=== PATIENT | male | born 1955 | race Caucasian/White ===

== ENCOUNTER → 2020-05-22 | Outpatient (CLI) | payer OTHER ==
[2020-05-22 18:49] LABS: BASOPHILS ABSOLUTE AUTO 0.03 K/mm3 (0.00-0.23); BASOPHILS PERCENT AUTO 1 % (0-2); EOSINOPHILS ABSOLUTE AUTO 0.12 K/mm3 (0.00-0.68); EOSINOPHILS PERCENT AUTO 3 % (0-6); Hematocrit 40.8 % (37.0-53.0); Hemoglobin 13.1 g/dL (13.5-17.5); IMMATURE GRAN ABSOLUTE AUTO 0.02 K/mm3 (0.00-0.10); IMMATURE GRAN PERCENT AUTO 0 % (0-1); LYMPHOCYTES ABSOLUTE AUTO 0.47 K/mm3 (0.84-5.20); LYMPHOCYTES PERCENT AUTO 11 % (21-46); MONOCYTES ABSOLUTE AUTO 0.37 K/mm3 (0.16-1.47); MONOCYTES PERCENT AUTO 8 % (4-13); Mean Corpuscular HGB Conc 32.1 g/dL (31.5-36.5); Mean Corpuscular Volume 97 fL (80-100); NEUTROPHILS ABSOLUTE AUTO 3.44 K/mm3 (1.96-9.15); NEUTROPHILS PERCENT AUTO 77 % (41-73); RDW Coefficient Variation 15.3 % (11.7-14.2); RDW Standard Deviation 54.8 fL (35.1-46.3); Red Blood Cell Count 4.22 M/mm3 (4.30-5.90); White Blood Cell Count 4.45 K/mm3 (4.00-11.30)
[2020-05-22 18:56] LABS: Mean Platelet Volume 11.7 fL (9.1-12.4); Platelet Count 150 K/mm3 (150-400)
[2020-05-22 18:59] LABS: Magnesium, Blood 2.4 mg/dL (1.6-2.4)
[2020-05-22 19:07] LABS: Alanine Aminotransfer (ALT/SGP 63 U/L (12-78); Albumin, Blood 3.4 g/dL (3.4-5.0); Albumin/Globulin Ratio 1.3 (0.8-1.8); Alk Phos 143 U/L (50-136); Anion Gap 9 mmol/L (6-16); Aspartate Aminotrans (AST/SGOT 33 U/L (12-37); Bilirubin, Total 0.3 mg/dL (0.1-1.0); Blood Urea Nitrogen 27 mg/dL (8-24); Bun/Creatinine Ratio 38.6 (12.0-20.0); CO2, Blood 22 mmol/L (21-32); Calcium, Blood 8.5 mg/dL (8.5-10.1); Chloride, Blood 111 mmol/L (98-108); Globulin, Blood 2.7 g/dL (2.2-4.0); Glomerular Filtration Rate >60 (60-); Glucose, Blood 148 mg/dL (70-99); Phosphorus, Blood 3.8 mg/dL (2.5-4.9); Potassium, Blood 5.1 mmol/L (3.5-5.5); Prealbumin, Blood 18.4 mg/dL (20.0-40.0); Sodium, Blood 142 mmol/L (136-145); Total Protein, Blood 6.1 g/dL (6.4-8.2); Triglycerides 122 mg/dL (30-160)
== END ==
LOC: LAB SHORT 18:24 → LAB 18:24
PROVIDERS: Internal Medicine Hematology & Oncology
DX: E44.0 Moderate protein-calorie malnutrition (principal)
CPT/HCPCS: 80053; 83735; 84100; 84134; 84478; 85025

== ENCOUNTER → 2020-07-04 | Outpatient (CLI) | payer OTHER ==
[2020-07-04 14:05] LABS: Hematocrit 42.2 % (37.0-53.0); Hemoglobin 13.6 g/dL (13.5-17.5); Mean Corpuscular HGB 31.2 pg (26.0-34.0); Mean Corpuscular HGB Conc 32.2 g/dL (31.5-36.5); Mean Corpuscular Volume 97 fL (80-100); Mean Platelet Volume 11.1 fL (9.1-12.4); Platelet Count 186 K/mm3 (150-400); RDW Standard Deviation 57.1 fL (35.1-46.3); Red Blood Cell Count 4.36 M/mm3 (4.30-5.90); White Blood Cell Count 7.19 K/mm3 (4.00-11.30)
[2020-07-04 16:20] LABS: Magnesium, Blood 2.3 mg/dL (1.6-2.4)
[2020-07-04 17:18] LABS: Phosphorus, Blood 2.4 mg/dL (2.5-4.9); Triglycerides 62 mg/dL (30-160)
[2020-07-05 15:37] LABS: Alanine Aminotransfer (ALT/SGP 68 U/L (12-78); Albumin, Blood 3.2 g/dL (3.4-5.0); Albumin/Globulin Ratio 1.1 (0.8-1.8); Alk Phos 148 U/L (50-136); Anion Gap 10 mmol/L (6-16); Aspartate Aminotrans (AST/SGOT 35 U/L (12-37); Bilirubin, Total 0.4 mg/dL (0.1-1.0); Blood Urea Nitrogen 29 mg/dL (8-24); Bun/Creatinine Ratio 39.3 (12.0-20.0); CO2, Blood 22 mmol/L (21-32); Calcium, Blood 8.3 mg/dL (8.5-10.1); Chloride, Blood 110 mmol/L (98-108); Creatinine, Blood 0.74 mg/dL (0.60-1.20); Globulin, Blood 2.8 g/dL (2.2-4.0); Glomerular Filtration Rate >60 (60-); Glucose, Blood 93 mg/dL (70-99); Potassium, Blood 4.5 mmol/L (3.5-5.5); Sodium, Blood 142 mmol/L (136-145)
== END ==
LOC: LAB 12:30
PROVIDERS: Internal Medicine Hematology & Oncology
DX: E44.0 Moderate protein-calorie malnutrition (principal)
CPT/HCPCS: 80053; 82306; 82607; 83735; 84100; 84478; 85027

== ENCOUNTER → 2020-07-18 | Outpatient (CLI) | payer OTHER ==
[2020-07-18 18:05] LABS: Hemoglobin 13.5 g/dL (13.5-17.5); Mean Corpuscular HGB 31.1 pg (26.0-34.0); Mean Corpuscular HGB Conc 32.1 g/dL (31.5-36.5); Mean Corpuscular Volume 97 fL (80-100); Mean Platelet Volume 11.3 fL (9.1-12.4); Platelet Count 229 K/mm3 (150-400); RDW Coefficient Variation 15.8 % (11.7-14.2); RDW Standard Deviation 56.2 fL (35.1-46.3); Red Blood Cell Count 4.34 M/mm3 (4.30-5.90); White Blood Cell Count 8.42 K/mm3 (4.00-11.30)
[2020-07-18 18:23] LABS: Alanine Aminotransfer (ALT/SGP 120 U/L (12-78); Albumin, Blood 3.2 g/dL (3.4-5.0); Albumin/Globulin Ratio 1.1 (0.8-1.8); Alk Phos 149 U/L (50-136); Anion Gap 5 mmol/L (6-16); Aspartate Aminotrans (AST/SGOT 43 U/L (12-37); Bilirubin, Total 0.3 mg/dL (0.1-1.0); Blood Urea Nitrogen 28 mg/dL (8-24); Bun/Creatinine Ratio 31.4 (12.0-20.0); CO2, Blood 29 mmol/L (21-32); Calcium, Blood 8.6 mg/dL (8.5-10.1); Chloride, Blood 104 mmol/L (98-108); Creatinine, Blood 0.89 mg/dL (0.60-1.20); Globulin, Blood 2.8 g/dL (2.2-4.0); Glomerular Filtration Rate >60 (60-); Glucose, Blood 116 mg/dL (70-99); Magnesium, Blood 2.2 mg/dL (1.6-2.4); Phosphorus, Blood 2.6 mg/dL (2.5-4.9); Potassium, Blood 4.3 mmol/L (3.5-5.5); Prealbumin, Blood 22.2 mg/dL (20.0-40.0); Sodium, Blood 138 mmol/L (136-145); Triglycerides 68 mg/dL (30-160)
[2020-07-18 18:31] LABS: BAND PERCENT MAN 6 % (0-8); BASOPHILS ABSOLUTE MAN 0.08 K/mm3 (0.00-0.23); BASOPHILS PERCENT MAN 1 % (0-2); EOSINOPHILS ABSOLUTE MAN 0.67 K/mm3 (0.00-0.68); EOSINOPHILS PERCENT MAN 8 % (0-6); LYMPHOCYTES % ATYPICAL MANUAL 2 % (0-0); LYMPHOCYTES ABSOLUTE MAN 0.84 K/mm3 (0.84-5.20); LYMPHOCYTES PERCENT MAN 8 % (21-46); METAMYELOCYTE ABSOLUTE MAN 0.08 K/mm3 (0.00-0.00); METAMYELOCYTE PERCENT MAN 1 % (0-0); MONOCYTES ABSOLUTE MAN 0.58 K/mm3 (0.16-1.47); MONOCYTES PERCENT MAN 7 % (4-13); NEUTROPHILS ABSOLUTE MAN 6.14 K/mm3 (1.96-9.15); SEG NEUTROPHILS PERCENT MAN 67 % (41-73); TOTAL CELLS COUNTED 100
== END ==
LOC: LAB 12:50
DX: E44.0 Moderate protein-calorie malnutrition (principal)
CPT/HCPCS: 80053; 82378; 83735; 84100; 84134; 84478; 85025

== ENCOUNTER → 2020-08-08 | Outpatient (CLI) | payer OTHER ==
[2020-08-08 14:07] LABS: Alanine Aminotransfer (ALT/SGP 104 U/L (12-78); Albumin, Blood 3.1 g/dL (3.4-5.0); Albumin/Globulin Ratio 1.1 (0.8-1.8); Alk Phos 150 U/L (50-136); Anion Gap 3 mmol/L (6-16); Aspartate Aminotrans (AST/SGOT 30 U/L (12-37); Bilirubin, Total 0.3 mg/dL (0.1-1.0); Blood Urea Nitrogen 29 mg/dL (8-24); Bun/Creatinine Ratio 33.6 (12.0-20.0); CO2, Blood 33 mmol/L (21-32); Calcium, Blood 8.6 mg/dL (8.5-10.1); Chloride, Blood 105 mmol/L (98-108); Creatinine, Blood 0.86 mg/dL (0.60-1.20); Globulin, Blood 2.9 g/dL (2.2-4.0); Glomerular Filtration Rate >60 (60-); Glucose, Blood 120 mg/dL (70-99); Magnesium, Blood 2.2 mg/dL (1.6-2.4); Phosphorus, Blood 3.5 mg/dL (2.5-4.9); Potassium, Blood 4.6 mmol/L (3.5-5.5); Prealbumin, Blood 20.5 mg/dL (20.0-40.0); Sodium, Blood 141 mmol/L (136-145); Triglycerides 54 mg/dL (30-160)
== END ==
LOC: LAB SHORT 13:26
DX: E44.0 Moderate protein-calorie malnutrition (principal)
CPT/HCPCS: 80053; 82378; 83735; 84100; 84134; 84478

== ENCOUNTER → 2020-08-08 | Outpatient (CLI) | payer OTHER ==
[2020-08-08 17:15] LABS: Hematocrit 42.4 % (37.0-53.0); Mean Corpuscular HGB 31.8 pg (26.0-34.0); Mean Corpuscular Volume 96 fL (80-100); Mean Platelet Volume 11.1 fL (9.1-12.4); Platelet Count 215 K/mm3 (150-400); RDW Coefficient Variation 15.4 % (11.7-14.2); RDW Standard Deviation 54.6 fL (35.1-46.3); White Blood Cell Count 16.36 K/mm3 (4.00-11.30)
[2020-08-08 17:39] LABS: Magnesium, Blood 1.9 mg/dL (1.6-2.4)
[2020-08-08 17:40] LABS: Alanine Aminotransfer (ALT/SGP 112 U/L (12-78); Albumin, Blood 3.5 g/dL (3.4-5.0); Albumin/Globulin Ratio 1.2 (0.8-1.8); Alk Phos 163 U/L (50-136); Anion Gap 9 mmol/L (6-16); Aspartate Aminotrans (AST/SGOT 36 U/L (12-37); Bilirubin, Total 0.4 mg/dL (0.1-1.0); Blood Urea Nitrogen 29 mg/dL (8-24); CO2, Blood 25 mmol/L (21-32); Calcium, Blood 8.7 mg/dL (8.5-10.1); Chloride, Blood 104 mmol/L (98-108); Creatinine, Blood 0.81 mg/dL (0.60-1.20); Glomerular Filtration Rate >60 (60-); Glucose, Blood 112 mg/dL (70-99); Phosphorus, Blood 3.5 mg/dL (2.5-4.9); Potassium, Blood 4.5 mmol/L (3.5-5.5); Prealbumin, Blood 25.2 mg/dL (20.0-40.0); Sodium, Blood 138 mmol/L (136-145); Total Protein, Blood 6.5 g/dL (6.4-8.2); Triglycerides 54 mg/dL (30-160)
[2020-08-08 17:41] LABS: BAND PERCENT MAN 15 % (0-8); BASOPHILS PERCENT MAN 0 % (0-2); EOSINOPHILS PERCENT MAN 8 % (0-6); LYMPHOCYTES ABSOLUTE MAN 0.98 K/mm3 (0.84-5.20); LYMPHOCYTES PERCENT MAN 6 % (21-46); MONOCYTES ABSOLUTE MAN 0.81 K/mm3 (0.16-1.47); MONOCYTES PERCENT MAN 5 % (4-13); NEUTROPHILS ABSOLUTE MAN 13.25 K/mm3 (1.96-9.15); SEG NEUTROPHILS PERCENT MAN 66 % (41-73); TOTAL CELLS COUNTED 100
== END ==
LOC: LAB SHORT 17:06
DX: E44.0 Moderate protein-calorie malnutrition (principal)
CPT/HCPCS: 80053; 82378; 83735; 84100; 84134; 84478; 85025

== ENCOUNTER → 2020-09-04 | Outpatient (CLI) | payer OTHER ==
[2020-09-04 16:39] LABS: BASOPHILS ABSOLUTE AUTO 0.06 K/mm3 (0.00-0.23); BASOPHILS PERCENT AUTO 2 % (0-2); EOSINOPHILS ABSOLUTE AUTO 0.22 K/mm3 (0.00-0.68); EOSINOPHILS PERCENT AUTO 7 % (0-6); Hematocrit 42.5 % (37.0-53.0); Hemoglobin 13.9 g/dL (13.5-17.5); IMMATURE GRAN ABSOLUTE AUTO 0.02 K/mm3 (0.00-0.10); IMMATURE GRAN PERCENT AUTO 1 % (0-1); LYMPHOCYTES ABSOLUTE AUTO 0.55 K/mm3 (0.84-5.20); LYMPHOCYTES PERCENT AUTO 18 % (21-46); MONOCYTES ABSOLUTE AUTO 0.37 K/mm3 (0.16-1.47); MONOCYTES PERCENT AUTO 12 % (4-13); Mean Corpuscular HGB 31.4 pg (26.0-34.0); Mean Corpuscular HGB Conc 32.7 g/dL (31.5-36.5); Mean Corpuscular Volume 96 fL (80-100); NEUTROPHILS ABSOLUTE AUTO 1.89 K/mm3 (1.96-9.15); NEUTROPHILS PERCENT AUTO 61 % (41-73); RDW Coefficient Variation 14.9 % (11.7-14.2); RDW Standard Deviation 52.4 fL (35.1-46.3); Red Blood Cell Count 4.43 M/mm3 (4.30-5.90); White Blood Cell Count 3.11 K/mm3 (4.00-11.30)
[2020-09-04 16:49] LABS: Alanine Aminotransfer (ALT/SGP 79 U/L (12-78); Albumin, Blood 3.3 g/dL (3.4-5.0); Albumin/Globulin Ratio 1.1 (0.8-1.8); Alk Phos 163 U/L (50-136); Anion Gap 6 mmol/L (6-16); Aspartate Aminotrans (AST/SGOT 33 U/L (12-37); Bilirubin, Total 0.5 mg/dL (0.1-1.0); Blood Urea Nitrogen 32 mg/dL (8-24); Bun/Creatinine Ratio 41.5 (12.0-20.0); CO2, Blood 25 mmol/L (21-32); Calcium, Blood 8.4 mg/dL (8.5-10.1); Chloride, Blood 108 mmol/L (98-108); Creatinine, Blood 0.77 mg/dL (0.60-1.20); Glomerular Filtration Rate >60 (60-); Glucose, Blood 113 mg/dL (70-99); Phosphorus, Blood 3.8 mg/dL (2.5-4.9); Potassium, Blood 4.4 mmol/L (3.5-5.5); Prealbumin, Blood 23.4 mg/dL (20.0-40.0); Sodium, Blood 139 mmol/L (136-145); Total Protein, Blood 6.3 g/dL (6.4-8.2); Triglycerides 57 mg/dL (30-160)
[2020-09-04 16:59] LABS: Mean Platelet Volume 11.6 fL (9.1-12.4); Platelet Count 137 K/mm3 (150-400)
== END ==
LOC: LAB 14:00 → LAB SHORT 14:00
PROVIDERS: Internal Medicine
DX: Z13.228 Encounter for screening for other metabolic disorders (principal)
CPT/HCPCS: 80053; 82378; 84100; 84134; 84478; 85025

== ENCOUNTER 2021-08-22 11:34 | Inpatient (IN) | payer OTHER, MEDICARE ==
[~2021-08-22] VITALS: Ht 188 cm; Wt 83.9 kg
[~2021-08-22 11:34] MED LIST: ACET500; Abraxane100 MG IV; BENADRYL25 M1 IV; Brethine2.5 MG PO; DEXA.5 IV; HERCEPTIN150 MG IV; METO10 PO; ONDA4ODT MM; OXYC5 PO; TERBINAFINE HC250 MG PO; ZARXIO300 MCG/01 IV; ZOLEDRONIC ACID4 M1 IV
[2021-08-22 12:35] LABS: Hematocrit 35.4 % (37.0-53.0); Hemoglobin 12.1 g/dL (13.5-17.5); Mean Corpuscular HGB 31.2 pg (26.0-34.0); Mean Corpuscular HGB Conc 34.2 g/dL (31.5-36.5); Mean Corpuscular Volume 91 fL (80-100); Mean Platelet Volume 11.6 fL (9.1-12.4); Platelet Count 165 K/mm3 (150-400); RDW Standard Deviation 52.8 fL (35.1-46.3); Red Blood Cell Count 3.88 M/mm3 (4.30-5.90); White Blood Cell Count 7.43 K/mm3 (4.00-11.30)
[2021-08-22 13:05] LABS: Alanine Aminotransfer (ALT/SGP 148 U/L (12-78); Albumin, Blood 2.7 g/dL (3.4-5.0); Albumin/Globulin Ratio 0.8 (0.8-1.8); Alk Phos 122 U/L (50-136); Anion Gap 8 mmol/L (6-16); Aspartate Aminotrans (AST/SGOT 79 U/L (12-37); Bilirubin, Total 0.6 mg/dL (0.1-1.0); Blood Urea Nitrogen 23 mg/dL (8-24); Bun/Creatinine Ratio 24.1 (12.0-20.0); CO2, Blood 27 mmol/L (21-32); Calcium, Blood 7.9 mg/dL (8.5-10.1); Chloride, Blood 99 mmol/L (98-108); Creatinine, Blood 0.96 mg/dL (0.60-1.20); Globulin, Blood 3.2 g/dL (2.2-4.0); Glomerular Filtration Rate >60 (60-); Glucose, Blood 126 mg/dL (70-99); Sodium, Blood 134 mmol/L (136-145); Total Protein, Blood 5.9 g/dL (6.4-8.2)
[2021-08-22 13:11] LABS: BAND PERCENT MAN 30 % (0-8); BASOPHILS PERCENT MAN 0 % (0-2); EOSINOPHILS PERCENT MAN 0 % (0-6); LYMPHOCYTES ABSOLUTE MAN 0.37 K/mm3 (0.84-5.20); LYMPHOCYTES PERCENT MAN 5 % (21-46); MONOCYTES ABSOLUTE MAN 0.74 K/mm3 (0.16-1.47); MONOCYTES PERCENT MAN 10 % (4-13); NEUTROPHILS ABSOLUTE MAN 6.31 K/mm3 (1.96-9.15); SEG NEUTROPHILS PERCENT MAN 55 % (41-73); TOTAL CELLS COUNTED 100
--- NOTE | 2021-08-23 04:51 | NUR ---
SPOKE WITH HOSPITALIST REGARDING POSITIVE BLOOD CULTURE - SAID TO CONTINUE WITH SKYLER.
[2021-08-23 05:30] LABS: Hematocrit 33.3 % (37.0-53.0); Mean Corpuscular HGB 31.1 pg (26.0-34.0); Mean Corpuscular Volume 94 fL (80-100); Mean Platelet Volume 11.9 fL (9.1-12.4); Platelet Count 162 K/mm3 (150-400); RDW Coefficient Variation 16.1 % (11.7-14.2); RDW Standard Deviation 55.2 fL (35.1-46.3); Red Blood Cell Count 3.54 M/mm3 (4.30-5.90); White Blood Cell Count 6.77 K/mm3 (4.00-11.30)
--- NOTE | 2021-08-23 05:43 | NUR ---
POWDER HAND SUMMARY ADMITTED FOR SEPSIS. PT ALERT AND ORIENTED X4. UNABLE TO AMBULATE DUE TO PAIN TO THE RIGHT HIP R/T METASTATIC LESION. MEDICATED X2 FOR SUCH. PT WITH GRAM POSITIVE COCCI IN CLUSTERS IN BLOOD CULTURE. HOSPITALIST CONTACTED AND SKYLER TO BE CONTINUED - RECEIVED TWO DOSES THIS SHIFT. PT MEDIPORT IS FLUSHED AND HEPARIN LOCKED. CONSULT TO SURGERY FOR MEDIPORT REMOVAL CALLED. NO OTHER CONCERNS THIS SHIFT.
[2021-08-23 05:52] LABS: BAND PERCENT MAN 5 % (0-8); BASOPHILS PERCENT MAN 0 % (0-2); EOSINOPHILS ABSOLUTE MAN 0.06 K/mm3 (0.00-0.68); EOSINOPHILS PERCENT MAN 1 % (0-6); LYMPHOCYTES ABSOLUTE MAN 0.94 K/mm3 (0.84-5.20); LYMPHOCYTES PERCENT MAN 14 % (21-46); MONOCYTES ABSOLUTE MAN 0.54 K/mm3 (0.16-1.47); MONOCYTES PERCENT MAN 8 % (4-13); NEUTROPHILS ABSOLUTE MAN 5.21 K/mm3 (1.96-9.15); SEG NEUTROPHILS PERCENT MAN 72 % (41-73); TOTAL CELLS COUNTED 100
[2021-08-23 06:04] LABS: Anion Gap 6 mmol/L (6-16); Blood Urea Nitrogen 18 mg/dL (8-24); Bun/Creatinine Ratio 21.6 (12.0-20.0); CO2, Blood 28 mmol/L (21-32); Calcium, Blood 7.6 mg/dL (8.5-10.1); Chloride, Blood 103 mmol/L (98-108); Creatinine, Blood 0.83 mg/dL (0.60-1.20); Glomerular Filtration Rate >60 (60-); Glucose, Blood 88 mg/dL (70-99); Magnesium, Blood 2.3 mg/dL (1.6-2.4); Phosphorus, Blood 2.5 mg/dL (2.5-4.9); Potassium, Blood 3.9 mmol/L (3.5-5.5); Sodium, Blood 137 mmol/L (136-145); Triglycerides 137 mg/dL (30-160)
--- NOTE | 2021-08-23 08:53 | NUR ---
Pt ate one bite of yogurt at 0800; NPO order received at 0830. Consulting surgeon has not yet seen or spoken with the patient. Pt is NPO at this time, called day surgery twice to advise them of situation; Waiting at this time for update on surgery time. Dr. Daniel here, clarification made of second consultation order and it was called into Dr. Garcias at this time.
--- NOTE | 2021-08-23 10:32 | NUR ---
Call to monitoring coordinator tech to advise that pt is being taken to day surgery at this time for surgery.
--- NOTE | 2021-08-23 10:45 | NUR ---
PT ALERT AND ORIENTED, ABLE TO REPOSITION SELF IN BED BUT WITH SOME DISCOMFORT DUE TO R HIP PAIN. Lungs clear T/O to Auscultation. Patient confirms NPO status AFTER HAVING ONE BIT OF YOGURT AT 0800 THIS MORNING 08/23/21, DR. GARCIA NOTIFIED AND GOING TO PROCEDE GIVEN THE EMERGENT NATURE OF THE CASE and agrees with scheduled surgery.
--- NOTE | 2021-08-23 14:01 | NUR ---
Pt is still waiting in day surgery for his surgery today. Call to his Stephani to update her on the situation, as she had called and was concerned that he was not back yet from his surgery. Dr. Garcias also here to see the patient; he was directed to day surgery to see the patient there.
--- NOTE | 2021-08-23 14:22 | NUR ---
Call from Stuart in [facility] regarding order for MARY from . I called and got Dr. Araujo who is covering for the resident, to let him know that the metal sander will need to be contacted by the attending provider for this patient. Dr. Araujo says that they will take care of it in the morning.
--- NOTE | 2021-08-23 15:13 | NUR ---
Spoke with the patient's Stephani and reassured her that the delay in the pt returning from the surgery was because of prior surgeries being late.
--- NOTE | 2021-08-23 16:00 | NUR ---
Call from Aury in day surgery; the patient will be returning to his room 342 shortly.
--- NOTE | 2021-08-23 16:42 | NUR ---
Pt returned from day surgery, accompanied by DIXON Jeffers. Pt is fully awake, alert, talkative and able to transfer at his own request by standing off of the stretcher and stepping to the bed. STates his pain level in his right hip is not bad. He states that he is hungry. Right chest wall gauze dressing secured with tegederm noted in place and is clean, dry and intact upon arrival from day surgery.
--- NOTE | 2021-08-23 17:39 | NUR ---
Pt 's Stephani here with her ; she brought him in some food that he likes. Pt c/o tenderness at the right wrist IV site, when the PPN was started to infuse. Flush with 10 cc NS, no infiltration noted, no redness and no leaking, but tenderness reported by pt. Powerglide 20 g 8 cm inserted in MINH and pt tolerated it very well. NOw infusing PPN via powerglide and pt reports no discomfort at the site.
--- NOTE | 2021-08-23 18:22 | NUR ---
Apology made to Stephani and the pt Stanislav as there is a no visitor policy effective yesterday which I was not made aware of until today. Pt verbalized understanding that she would not be able to visit. Pt's states,"but he is terminal and so there is an exception made for me to come in and visit." Uncertain where the pt's got this information. Pt states to his , "So we will just have to cool it for a couple of days, and not have any visits."
--- NOTE | 2021-08-24 00:15 | NUR ---
08/23/211931 PT LYING IN BED, DENIES ANY DISCOMFORT AT THIS TIME BUT REQUESTS PAIN MED FOR PREVENTATIVE. MEDIPORT REMOVAL SITE TO RCW IS C/D/I. TELE IS NSR W/BBB AT 68. NO OTHER APPARENT SIGNS OF DISTRESS. CALL LIGHT IS IN REACH.
--- NOTE | 2021-08-24 00:17 | NUR ---
08/23/21 2130 PT LYING IN BED, AWAKE, NO APPARENT SIGNS OF DISTRESS. CALL LIGHT IS IN REACH.
--- NOTE | 2021-08-24 00:17 | NUR ---
PT LYING IN BED, EYES CLOSED, APPEARS TO BE RESTING. BREATHING IS EVEN, UNLABORED. NO APPARENT SIGNS OF DISTRESS. CALL LIGHT IS IN REACH.
--- NOTE | 2021-08-24 01:24 | NUR ---
PT LYING IN BED, EYES CLOSED, APPEARS TO BE RESTING. BREATHING IS EVEN, UNLABORED. NO APPARENT SIGNS OF DISTRESS. CALL LIGHT IS IN REACH.
--- NOTE | 2021-08-24 04:02 | NUR ---
PT LYING IN BED, EYES CLOSED, APPEARS TO BE RESTING. BREATHING IS EVEN, UNLABORED. NO APPARENT SIGNS OF DISTESS. CALL LIGHT IS IN REACH.
--- NOTE | 2021-08-24 04:03 | NUR ---
PT IS AAO X 4, ON RA. DENIED ANY DISCOMFORT. TELE NSR W/BBB AT 68.
[2021-08-24 05:02] LABS: BASOPHILS ABSOLUTE AUTO 0.02 K/mm3 (0.00-0.23); BASOPHILS PERCENT AUTO 0 % (0-2); EOSINOPHILS PERCENT AUTO 0 % (0-6); Hematocrit 33.8 % (37.0-53.0); Hemoglobin 11.4 g/dL (13.5-17.5); IMMATURE GRAN ABSOLUTE AUTO 0.04 K/mm3 (0.00-0.10); IMMATURE GRAN PERCENT AUTO 1 % (0-1); LYMPHOCYTES ABSOLUTE AUTO 0.51 K/mm3 (0.84-5.20); LYMPHOCYTES PERCENT AUTO 7 % (21-46); MONOCYTES ABSOLUTE AUTO 0.38 K/mm3 (0.16-1.47); MONOCYTES PERCENT AUTO 5 % (4-13); Mean Corpuscular HGB 31.1 pg (26.0-34.0); Mean Corpuscular HGB Conc 33.7 g/dL (31.5-36.5); Mean Corpuscular Volume 92 fL (80-100); Mean Platelet Volume 12.5 fL (9.1-12.4); NEUTROPHILS ABSOLUTE AUTO 6.18 K/mm3 (1.96-9.15); NEUTROPHILS PERCENT AUTO 87 % (41-73); Platelet Count 182 K/mm3 (150-400); RDW Coefficient Variation 15.9 % (11.7-14.2); RDW Standard Deviation 53.9 fL (35.1-46.3); Red Blood Cell Count 3.66 M/mm3 (4.30-5.90); White Blood Cell Count 7.13 K/mm3 (4.00-11.30)
[2021-08-24 06:00] LABS: Anion Gap 7 mmol/L (6-16); Blood Urea Nitrogen 20 mg/dL (8-24); Bun/Creatinine Ratio 27.5 (12.0-20.0); CO2, Blood 28 mmol/L (21-32); Calcium, Blood 8.1 mg/dL (8.5-10.1); Chloride, Blood 104 mmol/L (98-108); Creatinine, Blood 0.73 mg/dL (0.60-1.20); Glomerular Filtration Rate >60 (60-); Glucose, Blood 163 mg/dL (70-99); Magnesium, Blood 2.7 mg/dL (1.6-2.4); Phosphorus, Blood 2.7 mg/dL (2.5-4.9); Potassium, Blood 4.2 mmol/L (3.5-5.5); Sodium, Blood 139 mmol/L (136-145)
--- NOTE | 2021-08-24 06:02 | NUR ---
PT LYING IN BED, APPEARS TO BE RESTING. BREATHING IS EVEN, UNLABORED. NO APPARENT SIGNS OF DISTRESS. CALL LIGHT IS IN REACH. NO OTHE CHANGES THIS SHIFT.
--- NOTE | 2021-08-24 16:57 | NUR ---
SHIFT SUMMARY PATIENT IS ALERT AND ORIENTED X4. PATIENT WORKED WITH PT THIS AFTERNOON AND AMBULATED DOWN HALLWAY APPROX 75FT. PATIENT REQUESTED NO PAIN MEDICATION TO SEE HOW MUCH HE COULD DO WITHOUT PAIN MEDS. PPN IS RUNNING WITH NO ISSUES. PATIENT HAS NO COMPLAINTS OF PAIN, NAUSEA, SOB OR VOMITTING THIS SHIFT. NO ACUTE ISSUES THIS SHIFT. BED IN LOCKED AND LOWEST POSITION. CALL LIGHT IN PLACE. WILL MONITOR UNTIL SHIFT CHANGE.
--- NOTE | 2021-08-24 19:10 | NUR ---
BEDSIDE REPORT GIVEN BY DIXON JACOBSON. PT LYING IN BED, A/O PARTICIPATED IN REPORT. ON RA. PPN INFUSING TO MINH PG AT 95 MLS/HR WITHOUT DIFFICULTY. NO COMPLAINTS OR NEEDS AT THIS TIME. WILL PROVIDE CARE T/O SHIFT. CALL LT IN REACH.
--- NOTE | 2021-08-24 20:01 | NUR ---
PT LYING IN BED TALKING TO , DECLINES GOING FOR A WALK TONIGHT. PT HAD ALREADY WALKED DURING DAYSHIFT. DECIDED TO TAKE A PASS ON IT. NO OTHER NEEDS.
--- NOTE | 2021-08-25 02:53 | NUR ---
PT RESTING AFTER 25MCG IV FENTANYL, GIVEN FOR NEUROPATHY PAIN IN BILAT FEET. CALL LT IN REACH.
--- NOTE | 2021-08-25 04:02 | NUR ---
SHIFT SUMMARY: A/O. ON RA. SR ON TELE AT 71. PPN INFUSING AT 95 MLS/HR VIA PG MINH. TOLERATED HALF OF TURKEY SANDWICH AND SOME LESLEY CRACKERS, STATED IT TASTED GOOD. TOOKS MEDS WHOLE IN APPLESAUCE WITHOUT DIFFICULTY. VOIDED USING URINAL AT BEDSIDE. SCD'S FOR DVT PROPHYLAXIS. MEDICATED PT X 3 FOR NEUROPATHY PAIN IN BILAT FEET AND RIGHT HIP PAIN WITH FAIR RESULTS. NO REPORTS OF NAUSEA. NO ACUTE CHANGES. WILL CONTINUE TO PROVIDE CARE UNTIL SHIFT REPORT.
[2021-08-25 05:31] LABS: Magnesium, Blood 2.1 mg/dL (1.6-2.4); Phosphorus, Blood 3.3 mg/dL (2.5-4.9)
--- NOTE | 2021-08-25 16:47 | NUR ---
SHIFT SUMMARY PATIENT IS ALERT AND ORIENTED X4. PATIENT HAS BEEN PLEASENT AND COOPERATIVE WITH CARE. PATIENT RECEIVED A BATH THIS SHIFT. PATIENT HAS PPN INFUSING AT 95MLS/HR. PATIENT TOOK MEDICATIONS WHOLE IN APPLESAUCE WELL. PATIENT WAS MEDICATED WITH OXYCONTIN ONCE AND TYLENOL TWICE FOR PAIN RELATED TO PATIENTS HIP. PATIENT HAS HAD NO COMPLAINTS OF NAUSEA, VOMITTING OR SOB THIS SHIFT. NO ACUTE EVENTS THIS SHIFT. BED IN LOWEST POSITION. CALL LIGHT IN PLACE. WILL MONITOR UNTIL SHIFT CHANGE.
--- NOTE | 2021-08-25 23:45 | NUR ---
PT AWAKE STATES HE'S DOING REALLY GOOD AT THIS TIME. WROTE TIMES FOR NEXT PAIN MEDICATION ON WHITEBOARD FOR PT'S INFORMATION. PT APPRECIATIVE. NO NEEDS AT THIS TIME. CALL LT IN REACH.
--- NOTE | 2021-08-26 01:06 | NUR ---
PAIN MED GIVEN FOR R HIP PAIN, PT STATES HE'S DOING WELL. NO OTHER NEEDS. CALL LT IN REACH.
--- NOTE | 2021-08-26 04:19 | NUR ---
SHIFT SUMMARY: R HIP PAIN HAS BEEN MANAGED WELL PER PT. PAIN MEDS GIVEN T/O SHIFT. K-PAD TO R HIP THERAPEUTIC. NO COMPLAINTS OF SOB OR NAUSEA. HI SOME REDNESS AND WARMTH NOTED WHERE PICC LINE WAS DC'D. RLE ELEVATED FOR COMFORT. PPN INFUSING AT 95 MLS/HR VIA MINH PG. ON RA. SR IN 70'S WITH SOME PVC'S PER TELE MONITOR. NO ACUTE CHANGES. WILL CONTINUE TO PROVIDE CARE UNTIL SHIFT REPORT. CALL LT IN REACH.
--- NOTE | 2021-08-26 17:33 | NUR ---
SHIFT SUMMARY PATIENT IS ALERT AND ORIENTED X4. PATIENT HAS BEEN HAVING SCHEDULED TYLENOL AND OXYCODONE WITH GOOD RELIEF. REPOSITIONED PATIENT FREQUENTLY WITH RELIEF WELL. PPN IS INFUSING AT 95MLS/HR. PATIENT IS NPO AFTER MIDNIGHT FOR MEDIPORT SURGERY TOMORROW. PATIENT HAS HAD NO ACUTE EVENTS THIS SHIFT. PATIENT HAS NO COMPLAINTS OF NAUSEA, SOB OR VOMITTING THIS SHIFT. BED IN LOWEST POSITION, CALL LIGHT IN PLACE. WILL MONITOR UNTIL SHIFT CHANGE.
--- NOTE | 2021-08-26 19:18 | NUR ---
RECEIVED REPORT FROM DIXON JACOBSON. PT SITTING UP IN BED, STATES HAVING A BETTER DAY. SMILING. DISCUSSED PLAN OF CARE FOR THIS SHIFT AND PAIN CONTROL, PT AGGREEABLE. NO NEEDS AT THIS TIME, RESP E/U ON RA. PPN INFUSING AT 95 MLS/HR VIA PG MINH. PT WILL BE NPO AFTER MIDNIGHT FOR MEDIPORT PLACEMENT IN AM. WILL PROVIDE CARE T/O SHIFT. CALL LT IN REACH.
--- NOTE | 2021-08-27 04:23 | NUR ---
SHIFT SUMMARY: MANAGED R HIP PAIN WITH PAIN MEDS PER EMAR WITH GOOD PAIN RELIEF. STATES MORE PAIN WITH MOVEMENT. NO COMPLAINTS OF SOB. MEDICATED FOR NAUSEA ONE TIMES. NPO AFTER MN FOR MEDIPORT PLACEMENT TODAY. PT WOULD LIKE TO HAVE TWO PORTS, ONE FOR PPN AND USE THE OTHER FOR CHEMO. VOIDED WELL USING URINAL AT BEDSIDE. PPN INFUSING AT 95 MLS VIA MINH PG. NO ACUTE CHANGES. WILL CONTINUE TO PROVIDE CARE UNTIL SHIFT REPORT.
--- NOTE | 2021-08-27 16:49 | NUR ---
SHIFT SUMMARY PATIENT MEDICATED FOR PAIN X3. PATIENT DENIES NAUSEA AND SHORTNESS OF BREATH. PATIENT IS A SBA FOR TRANSFERS. PATIENT USES URINAL INDEPENDENTLY. PATIENT HAD BEEN NPO SINCE MIDNIGHT FOR POSSIBLE PROCEDURE. PROCEDURE SCHEDULED FOR TOMORROW, PATIENT TO BE NPO AT MIDNIGHT. PPN IS RUNNING AT 95. PATIENT S PLEASANT AND COOPERATIVE WITH CARE.
--- NOTE | 2021-08-28 04:31 | NUR ---
SHIFT SUMMARY NO ACUTE CHANGES TO PT CONDITION AT THIS TIME. PT IS NPO FROM MIDNIGHT, HE WILL HAVE A MEDIPORT PLACED THIS AM. PT HAS POWERGLIDE IN L UPPER ARM, INFUSING PPN AT 95/HOUR. NO TELE AND NO O2. PT IS A&O X 4. PLEASANT AND COOPERATIVE WITH HIS CARE. MEDICATED FOR CHRONIC PAIN PER EMAR. PT USES URINAL AND IS A STANDYBY ASSIST TO BEDSIDE COMMODE. PT HAS CALL LIGHT WITHIN HIS REACH. WILL CONTINUE TO MONITOR.
--- NOTE | 2021-08-28 08:24 | NUR ---
THE PATIENT WAS BROUGHT TO DAY SURGERY FOR HIS PROCEDURE.
--- NOTE | 2021-08-28 08:58 | NUR ---
08/28/21 0858 [place] Paula PT ON SCHEDULED ANCEF 2G AT 0800
--- NOTE | 2021-08-28 09:33 | NUR ---
OUT OF ROOM PATIENT TAKEN TO OR AT 0745. PPN STOPPED FOR PROCEDURE. MORNING MEDICATIONS HELD
--- NOTE | 2021-08-28 10:32 | NUR ---
BACK IN ROOM PATIENT BACK TO ROOM AT 1010. VITAL SIGNS STABLE. JENNA RN, GAVE REPORT AND TRANSPORTED PATIENT. DRESSING TO LEFT UPPER CHEST CLEAN, DRY AND INTACT. PPN STARTED.
--- NOTE | 2021-08-28 17:48 | NUR ---
SHIFT SUMMARY PATIENT MEDICATED FOR PAIN X1. PATIENT DENIES NAUSEA AND SHORTNESS OF BREATH. PATIENT IS A SBA FOR TRANSFERS. PATIENT WENT TO SURGERY TODAY TO HAVE MEDIPORT PLACED. PICC LINE TO BE PLACED TOMORROW. PPN RUNNING AT 95MLS/HR. PATIENT ATE A SMALL AMOUNT AT DINNER. PATIENT IS EAGER TO GO HOME. PATIENT IS PLEASANT AND COOPERATIVE WITH CARE.
--- NOTE | 2021-08-29 04:48 | NUR ---
Patient pleasant and cooperative. No acute events. Picc line to be place tomorrow. PPN running at 95ml/hr. Mild pain reported, managed per eMAR. We will continue to monitor patient.
--- NOTE | 2021-08-29 18:38 | NUR ---
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 PT WAS ORIGINALLY UPSET HE FELT HE HAD BEEN MISLED BY THE CARE TEAM TO BELIEVE THAT THIS WOULD BE THE EASIER OPTION FOR HIM. AFTER MUCH BACK AND FORTH A PICC LINE WAS UTLIMATELY DECIDED UPON. HOWEVER AFTER 2 ATTEMPTS THE NURSE WAS UNABLE TO GET A LINE IN. THE PT MADE THE DECISION TO STAY OVER NIGHT UNTIL ANOTHER NURSE CAN TRY AGAIN TOMORROW. WILL CONTINUE TO MONITOR.
--- NOTE | 2021-08-30 05:57 | NUR ---
SHIFT SUMMARY: PATIENT WITH DIFFICULT PAIN MANAGEMENT ON [facility]. PATIENT ENDORSES 9-10 PAIN TO RIGHT HIP WITH MODERATE EFFECTIVENESS OF TREATMENT. PATIENT WILL FALL ASLEEP POST ADMINISTRATION AND WAKE UP IN 1-2 HOURS REQUESTING MORE PAIN MEDICATION. PATIENT STATES HE DID PT TODAY AND THAT AGGRIAVTED HIS HIP. EXPLAINED AVAILBLE PAIN MEDICATIONS AVAILABLE AND FREQUENCY. PATIENT STATED AT HOME HE WILL TAKE ONE 5MG OXYCODONE AND IF NOT EFFECTIVE HE WILL TAKE A 2ND DOSE 30-90 MINUTES LATER AND REPEAT UNTIL HIS PAIN IS RELEIVED. EDUCATED PATIENT ON TAKING MEDICATIONS PRESCRIBED AND HE STATED HIS ONGOLOGIST ADVISED HIM TO TAKE MEDS UNTIL PAIN RELEIF IS OBTAINED. HE ELABORATED THAT SOME DAYS HE TAKES UP TO 6 TABLETS AND OTHERS HE WILL TAKE ONLY 1. MADE CALL TO [facility] HOSPITALIST TO ADVISE OF [place] PAIN CONTROL. NEW ORDERS OBTAINED.
[2021-08-30 08:27] LABS: Triglycerides 92 mg/dL (30-160)
--- NOTE | 2021-08-30 18:09 | NUR ---
SHIFT SUMMARY PT STILL AHS NOT RECEIVED A PICC LINE TODAY DUE TO LACK OF TRAINED STAFF. HE IS OK WITH STAYING ANOTHER NIGHT UNTIL IT CAN BE ATTEMPTED TOMORROW. HIS HIP HAS CAUSED HIM CONSIDERABLE PAIN TODAY AND HE HAS BEEN MEDICATED SEVERAL TIMES. HE STATES HIS NEW MEDICATION REGIME IS WORKING BETTER FOR HIM. PPN STILL RUNNNING THROUGH POWER GLIDE. WILL CONTINUE TO MONITOR.
--- NOTE | 2021-08-31 04:27 | NUR ---
SHIFT SUMMARY: A&OX4, PAIN BETTER CONTROLLED WITH SCHEDULED OXYCONTIN. PATIENT HAS NOT HAD A BM SINCE 08/25, DENIES FEELING CONSTIPATED AND STATES HE HAS A VERY LOW APPETITIE SINCE BEING ON PPN. IS RECEIVING COLACE. EDUCATED PATIENT ON USE OF NARCOTICS AND COMMON SIDE EFFECT OF CONSTIPATION. ADVISED WE MAY NEED TO LOOK AT ESCALATING BOWEL MEDICATIONS. PATIENT REQUESTED TO EXPLORE OPTIONS TOMORROW, HE USES MIRALAX PRN S/P CHEMO TREATMENTS.
[2021-08-31 05:40] LABS: Anion Gap 5 mmol/L (6-16); Blood Urea Nitrogen 18 mg/dL (8-24); Bun/Creatinine Ratio 22.1 (12.0-20.0); CO2, Blood 29 mmol/L (21-32); Calcium, Blood 8.4 mg/dL (8.5-10.1); Chloride, Blood 97 mmol/L (98-108); Creatinine, Blood 0.82 mg/dL (0.60-1.20); Glomerular Filtration Rate >60 (60-); Glucose, Blood 127 mg/dL (70-99); Magnesium, Blood 2.6 mg/dL (1.6-2.4); Phosphorus, Blood 2.9 mg/dL (2.5-4.9); Potassium, Blood 4.4 mmol/L (3.5-5.5); Sodium, Blood 131 mmol/L (136-145)
--- NOTE | 2021-08-31 15:02 | NUR ---
History, Chart, Medications and Allergies reviewed before start of procedure.Pre-Op teaching done. Pt verbalizes understanding.
--- NOTE | 2021-08-31 18:11 | NUR ---
SHIFT SUMMARY PT WENT FOR A MURPHY PLACEMENT OVER MUCH DELIBERATION ABOUT WHAT PROCEDURE TO CHOOSE. MURPHY WAS PLACED ON THE RIGHT CHEST AND CONFIRMED WITH RADIOLOGY. PT HAD SOME NAUSEA AND VOMITING THIS MORNING BUT DENIED A NEED FOR ANTI EMETICS. ALSO HAS NOT HAD A BM IN 5 DAYS. MIRALAX WAS ADMINISTERED, BUT PT REPORTS THIS IS THE USUAL WHEN ON PPN VITALS SIGNS STABLE AFTER RETUNRING FROM SURGERY. PAIN MEDICATION GIVEN PER MAR DUE TO PAIN IN HIP FROM TRANSFERRING. PT WILL BE DC'ING TOMORROW. WILL PASS ONTO DAY SHIFT THAT HOME TPN MUST BEORDERED FOR THE PT. BEFORE HE LEAVES IN ORDER FOR IT TO BE DELIVERED ON TIME. WILL CONTINUE TO MONITOR.
--- NOTE | 2021-09-01 04:17 | NUR ---
SHIFT SUMMARY PATIENT REPORTS PAIN IS WELL CONTROLLED WITH OXYCONTIN. DID COMPLAIN OF PAIN FLARING UP A RESULT OF BED TRANSFERS TODAY BUT IT HAS SETTELED DOWN SINCE PREVOUS SHIFT ADMINISTERED PRN MEDICATIONS. PATIENT EXPRESSED EXCITMENT REGARDING DC TODAY. LEFT PORT INSERTION SITE WELL APPROXIMATED NO SS OF INFECTION. RIGHT MURPHY INTACT NOTED SOME DRIED BLOOD AT INSERTION SITE. PER CHARGE NURSE HICKAMN IS NOT TO BE USED. PPN IS INFUSING THROUGH MINH POWERGLIDE. WCTM.
[2021-09-01 05:34] LABS: Anion Gap 5 mmol/L (6-16); Blood Urea Nitrogen 23 mg/dL (8-24); Bun/Creatinine Ratio 33.5 (12.0-20.0); CO2, Blood 28 mmol/L (21-32); Calcium, Blood 8.4 mg/dL (8.5-10.1); Chloride, Blood 100 mmol/L (98-108); Creatinine, Blood 0.69 mg/dL (0.60-1.20); Glomerular Filtration Rate >60 (60-); Glucose, Blood 166 mg/dL (70-99); Magnesium, Blood 2.7 mg/dL (1.6-2.4); Phosphorus, Blood 2.3 mg/dL (2.5-4.9); Potassium, Blood 4.5 mmol/L (3.5-5.5); Sodium, Blood 133 mmol/L (136-145)
[2021-09-01] MEDS ORDERED: ACET325 PO (09:02)
[2021-09-01] MEDS ORDERED: OXYC10ER PO (10:52)
[2021-09-01] MEDS ORDERED: MIRALAX17 GM PO (10:52)
--- NOTE | 2021-09-01 11:07 | NUR ---
HOME TPN FOR DISCHARGE CALL TO [facility] ([phone]) FOR HOME TPN INFUSION RESUMPTION. REQUESTED INFROMATION FAXED TO [phone]. THE PHARMICIST STATED THEY WOULD CONTACT PT TO COORDINATE DELIVERY.
--- NOTE | 2021-09-01 17:59 | NUR ---
PT DISCHARGED WITH DC INSTRUCTION, WHEELCHAIR OUT TO AND PRIVATE CAR HOME. CALL TO COMPANY WHO MANAGES TPN AND THEY WILL CONTACT FAMILY TO MAKE ARRANGEMENTS. DC'D POWERGLIDE MINH AND PLACED PRESURE DRSG. SENT HOME WITH BELONGINGS. MEDICATED FOR PAIN BEFORE DISCHARGE.
== END 2021-09-01 13:20 | disposition home or self-care (01) | DRG 981 ==
LOC: ER 11:34 → MEDS 14:47
PROVIDERS: Family Medicine; Pharmacist; Physician Assistant; Student in an Organized Health Care Education/Training Program; Surgery; ADMIT Internal Medicine
PROC: 0JPT0WZ Removal of Totally Implantable Vascular Access Device from Trunk Subcutaneous Tissue and Fascia, Open Approach (ICD-10-PCS; 2021-08-23)
PROC: B518ZZA Fluoroscopy of Superior Vena Cava, Guidance (ICD-10-PCS; 2021-08-28)
PROC: 02HV33Z Insertion of Infusion Device into Superior Vena Cava, Percutaneous Approach (ICD-10-PCS; 2021-08-28)
PROC: B548ZZA Ultrasonography of Superior Vena Cava, Guidance (ICD-10-PCS; 2021-08-28)
PROC: 0JH60WZ Insertion of Totally Implantable Vascular Access Device into Chest Subcutaneous Tissue and Fascia, Open Approach (ICD-10-PCS; principal; 2021-08-28 08:30)
PROC: 02H633Z Insertion of Infusion Device into Right Atrium, Percutaneous Approach (ICD-10-PCS; 2021-08-31)
DX: T80.211A Bloodstream infection due to central venous catheter, initial encounter (principal); R65.20 Severe sepsis without septic shock; C16.9 Malignant neoplasm of stomach, unspecified; C79.89 Secondary malignant neoplasm of other specified sites; D84.821 Immunodeficiency due to drugs; B19.20 Unspecified viral hepatitis C without hepatic coma; B95.7 Other staphylococcus as the cause of diseases classified elsewhere; Z53.20 Procedure and treatment not carried out because of patient's decision for unspecified reasons; T45.1X5A Adverse effect of antineoplastic and immunosuppressive drugs, initial encounter; Z90.89 Acquired absence of other organs; Z98.890 Other specified postprocedural states; Z87.891 Personal history of nicotine dependence; Z79.899 Other long term (current) drug therapy; Y84.8 Other medical procedures as the cause of abnormal reaction of the patient, or of later complication, without mention of misadventure at the time of the procedure
CPT/HCPCS: 36415; 71045; 77001; 80048; 80053; 80202; 83605; 83735; 84100; 84478; 85025; 86140; 87040; 87070; 87077; 87186; 93306; 94762; 96365; 96366; 96367; 97110; 97116; 97162; 99284-25; A9270; C1751; C1788; J0690; J0696; J1100; J1642; J1650; J2250; J2370; J2405; J2704; J3010; J3370; J7030; J7050; J7120